=== PATIENT | female | born 1950 | race Caucasian/White ===

== ENCOUNTER → 2018-01-05 | Outpatient (CLI) | payer OTHER ==
[~2018-01-05] MED LIST: CALC-137 PO; HYZA100T6 PO; LOSA25TA31 PO
== END ==
LOC: HCAV 11:55
PROVIDERS: ATTEND Family Medicine
DX: R07.9 Chest pain, unspecified (principal)

== ENCOUNTER → 2018-01-14 | Outpatient (CLI) | payer OTHER ==
--- NOTE | 2018-01-14 17:58 | TR ---
Date Performed: 01/14/2018 Time Performed: 07:31:39 DOCTOR: Mary Lou Doran DRUG LIST: CLINICAL HISTORY: REASON FOR TEST: OUTPATIENT STRESS TEST REASON FOR ENDING: OBSERVATION: CONCLUSION: Modified nicky protocol, speed modified during stage 4. Maximum YL=701 Target HR Ach ieved=90.0% Maximum JN=974/84 Total Exercise Time=10:01. No reprod chest pain. Rare PVC. Upsloping st segments, nondiagnostic. Great exercise tolerance. Normal bp response. Recovery quick and unremarkab le. COMMENTS: No ischemia
== END ==
LOC: HCAV 07:08
PROVIDERS: ATTEND Family Medicine
DX: R07.9 Chest pain, unspecified (principal)
CPT/HCPCS: 93017